=== PATIENT | female | born 1975 | race Caucasian/White ===

== ENCOUNTER 2018-08-19 18:01 | Emergency (ER) | payer BC ==
[~2018-08-19] VITALS: Ht 162.6 cm; Wt 78.0 kg
[~2018-08-19 18:01] MED LIST: CLONAZEPAM PO; CYMBALTA20 MG; FLEXERIL; IBUPROFEN 800800 M1 PO; NORCO 5-325 TA1 EACH PO; PROTONIX40 MG PO; XANAX 0.25 MG0.25 MG
[2018-08-19] MEDS ORDERED: LIPITOR 20 MG T20 M1 PO (18:21)
[2018-08-19] MEDS ORDERED: TENORMIN25 MG PO (18:22)
[2018-08-19] MEDS ORDERED: LISINOPRIL20 MG PO (18:22)
[2018-08-19] MEDS ORDERED: IBUPROFEN 400400 M2 PO (19:01)
== END 2018-08-19 19:54 | disposition home or self-care (01) ==
LOC: ER 18:01
DX: S93.491A Sprain of other ligament of right ankle, initial encounter (principal); F17.200 Nicotine dependence, unspecified, uncomplicated; F41.9 Anxiety disorder, unspecified; I10 Essential (primary) hypertension; W22.8XXA Striking against or struck by other objects, initial encounter; Y93.89 Activity, other specified; Y92.89 Other specified places as the place of occurrence of the external cause; Y99.8 Other external cause status